=== PATIENT | male | born 1960 | race Two or more races ===

== ENCOUNTER 2021-10-17 13:31 | Emergency (ER) | payer MEDICAID, OTHER ==
[~2021-10-17] VITALS: Ht 177.8 cm; Wt 86.2 kg
[2021-10-17] MEDS ORDERED: CEPH-509 PO (15:31)
[2021-10-17] MEDS ORDERED: CLIN-203 PO (15:31)
[2021-10-17] MEDS ORDERED: CLINDAMYCIN 600 MG/4 ML VL IM ONE (15:45)
[2021-10-17] MEDS ORDERED: cefTRIAXone W LIDOCAINE 1 GM IM IM ONE (15:45)
[2021-10-17] MEDS ORDERED: SODIUM CHLORIDE 0.9% 1,000 ML IV ONE ×2 (17:15)
[2021-10-17 19:00] LABS: Basophils # (auto) 0.1 10 ^3/uL (0-0.2); Eosinophils # (auto) 0 10 ^3/uL (0-0.8); Eosinophils % (auto) 0.6 % (0.0-7.0); Hematocrit 41.2 % (41.0-53.0); Hemoglobin 13.9 g/dL (13.5-17.5); Lymphocytes # (auto) 2.1 10 ^3/uL (0.4-5.4); Lymphocytes % (auto) 27.5 % (10.0-50.0); Mean Corpuscular Hemoglobin 32.1 pg (28.0-32.0); Mean Corpuscular Hgb Conc. 33.7 g/dL (32.0-36.0); Mean Corpuscular Volume 95.2 fL (80.0-100.0); Monocytes # (auto) 0.7 10 ^3/uL (0-1.3); Monocytes % (auto) 8.9 % (0.0-12.0); Neutrophils # (auto) 4.8 10 ^3/uL (1.6-8.6); Nucleated Red Blood Cells % 0.1 %; Red Blood Cells 4.33 10^6/uL (4.5-5.90); Red Cell Distribution Width 14.6 % (11.8-14.3); White Blood Cell 7.7 10^3/uL (4.4-10.8)
[2021-10-17 19:04] LABS: INR 0.99 (0.9-1.15); Partial Thromboplastin Time 28.8 sec (23.6-33.0)
[2021-10-17 19:09] LABS: Calcium 8.9 mg/dL (8.5-10.1); Potassium 4.3 mmol/L (3.5-5.1)
[2021-10-17 19:17] LABS: Albumin 3.5 g/dL (3.4-5.0); BUN/Creatinine Ratio 23.8; Bilirubin, Total 0.6 mg/dL (0.2-1.0); Total Protein 7.8 g/dL (6.4-8.2)
[2021-10-17] MEDS ORDERED: cefTRIAXone 1GM/50ML D5W 50 ML IV ONE (23:45)
[2021-10-17] MEDS ORDERED: CLINDAMYCIN 300MG IV 50 ML IV ONE (23:45)
[2021-10-18] MEDS ORDERED: ONDANSETRON ODT 4 MG TAB PO ONE (09:45)
[2021-10-18] MEDS ORDERED: HYDROcodone-ACET 10/325MG TAB PO ONE (18:15)
[2021-10-19 03:22] VITALS: BP 153/72
== END 2021-10-19 03:54 | disposition short-term general hospital (02) ==
LOC: ER 13:31
DX: L03.116 Cellulitis of left lower limb (principal); M86.9 Osteomyelitis, unspecified; I10 Essential (primary) hypertension; Z79.2 Long term (current) use of antibiotics; Z79.899 Other long term (current) drug therapy; Z20.822 Contact with and (suspected) exposure to COVID-19
CPT/HCPCS: 36415; 73700; 80053; 83605; 84484; 85025; 85610; 85730; 87040; 87426; 93005; 93971; 96361; 96365; 96367; 99285; J0696; J3490

== ENCOUNTER → 2021-11-01 | Emergency (ER) | payer MEDICAID ==
[~2021-11-01] VITALS: Ht 177.8 cm; Wt 86.2 kg
[~2021-11-01] MED LIST: CEPH-509 PO; CLIN-203 PO
[2021-11-01 11:13] VITALS: BP 168/81
== END | disposition left against medical advice (07) ==
LOC: ER 11:08
DX: M79.672 Pain in left foot (principal); Z53.21 Procedure and treatment not carried out due to patient leaving prior to being seen by health care provider

== ENCOUNTER 2021-11-08 12:02 | Inpatient (IN) | payer MEDICAID ==
[~2021-11-08] VITALS: Ht 177.8 cm; Wt 190.0 kg
[2021-11-08 13:23] LABS: Basophils # (auto) 0.1 10 ^3/uL (0-0.2); Eosinophils # (auto) 0.1 10 ^3/uL (0-0.8); Eosinophils % (auto) 0.8 % (0.0-7.0); Hematocrit 37.7 % (41.0-53.0); Hemoglobin 12.2 g/dL (13.5-17.5); Lymphocytes # (auto) 2.2 10 ^3/uL (0.4-5.4); Lymphocytes % (auto) 30.9 % (10.0-50.0); Mean Corpuscular Hemoglobin 30.2 pg (28.0-32.0); Mean Corpuscular Hgb Conc. 32.5 g/dL (32.0-36.0); Mean Corpuscular Volume 93.1 fL (80.0-100.0); Monocytes # (auto) 0.7 10 ^3/uL (0-1.3); Monocytes % (auto) 10.3 % (0.0-12.0); Neutrophils # (auto) 4.1 10 ^3/uL (1.6-8.6); Nucleated Red Blood Cells % 0.2 %; Red Blood Cells 4.05 10^6/uL (4.5-5.90); Red Cell Distribution Width 14.3 % (11.8-14.3); White Blood Cell 7.1 10^3/uL (4.4-10.8)
[2021-11-08 13:26] LABS: Albumin 3.2 g/dL (3.4-5.0); Calcium 8.7 mg/dL (8.5-10.1); Potassium 3.9 mmol/L (3.5-5.1)
[2021-11-08 13:28] LABS: INR 1.06 (0.9-1.15); Partial Thromboplastin Time 29.9 sec (23.6-33.0)
[2021-11-08 13:44] LABS: BUN/Creatinine Ratio 24.7; Bilirubin, Total 0.4 mg/dL (0.2-1.0); Total Protein 7.8 g/dL (6.4-8.2)
[2021-11-08] MEDS ORDERED: CLINDAMYCIN 600MG IV 50 ML IV ONE (14:30)
[2021-11-08] MEDS ORDERED: MORPHINE SULFATE INJECTION 2 MG/ML SYRG IV PRN ×2 (15:15→19:00)
[2021-11-08] MEDS ORDERED: NITROGLYCERIN 0.4 MG SL TAB SL PRN (15:15)
[2021-11-08] MEDS ORDERED: FAMOTIDINE (10MG/ML) 2ML VL IV ONE (19:00)
[2021-11-08] MEDS ORDERED: VANCOMYCIN PER PHARMACY 0 MG IV SCH (19:00)
[2021-11-08] MEDS ORDERED: HYDROcodone-ACET 5/325MG TAB PO PRN ×2 (19:00)
[2021-11-08] MEDS ORDERED: LACTULOSE 20Gm/30ML SOLN PO PRN (19:00)
[2021-11-08] MEDS ORDERED: IPRATROPIUM BROM 0.5 MG/2.5ML INH SOL NEB ONE (19:00)
[2021-11-08] MEDS ORDERED: HYDROcodone-ACET 5/325MG TAB PO ONE (19:00)
[2021-11-08] MEDS ORDERED: DOCUSATE SOD 100 MG CAP PO PRN (19:00)
[2021-11-08] MEDS ORDERED: ONDANSETRON HCL 4 MG/2 ML VIAL IV PRN (19:00)
[2021-11-08] MEDS ORDERED: PIPERACILLIN-TAZOB 3.375GM 100 ML IV ONE (19:00)
[2021-11-08] MEDS ORDERED: hydrALAZINE HCL 20 MG/ML VL IV PRN (19:00)
[2021-11-08] MEDS ORDERED: VANCOMYCIN 1GM/250ML 250 ML IV ONE (20:00)
[2021-11-08 20:58] LABS: INR 1.06 (0.9-1.15); Partial Thromboplastin Time 30.1 sec (23.6-33.0)
[2021-11-08 21:02] LABS: Magnesium 2.3 mg/dL (1.6-2.6); Phosphorus 3.1 mg/dL (2.5-4.90)
[2021-11-08] MEDS ORDERED: diphenhdrAMINE HCL 50 MG/1 ML VL ONE (21:34)
[2021-11-08] MEDS: PIPERACILLIN-TAZOB 3.375GM 100 ML IV SCH (21:51)
[2021-11-08] MEDS ORDERED: ATORVASTATIN 20 MG TAB PO SCH (22:00)
[2021-11-08] MEDS ORDERED: IPRATROPIUM BROM 0.5 MG/2.5ML INH SOL NEB SCH (22:00)
[2021-11-09] MEDS ORDERED: METOPROLOL SUCCINATE XL 50 MG TAB PO ONE
[2021-11-09] MEDS: PIPERACILLIN-TAZOB 3.375GM 100 ML IV SCH ×2 (03:31→10:24)
[2021-11-09] MEDS: VANCOMYCIN 1GM/250ML 250 ML IV SCH ×2 (04:00→06:54)
[2021-11-09 05:00] VITALS: BP 111/66
[2021-11-09 06:22] LABS: INR 1.1 (0.9-1.15); Partial Thromboplastin Time 30.7 sec (23.6-33.0)
[2021-11-09 07:00] LABS: CRP High Sensitivity 3.69 mg/dL (< 0.3); Phosphorus 3.7 mg/dL (2.5-4.90); Uric Acid 5.7 mg/dL (3.5-7.2)
[2021-11-09 08:31] VITALS: BP 115/64
[2021-11-09] MEDS ORDERED: ENOXAPARIN SOD 40 MG/0.4 ML SYRINGE SC SCH (10:00)
[2021-11-09] MEDS ORDERED: BENAZEPRIL HCL 10 MG TAB PO SCH (10:00)
[2021-11-09] MEDS ORDERED: FAMOTIDINE (10MG/ML) 2ML VL IV SCH (10:00)
[2021-11-09] MEDS ORDERED: ASPirin 81 mg TAB PO SCH (10:00)
[2021-11-09] MEDS ORDERED: METOPROLOL SUCCINATE XL 50 MG TAB PO SCH (10:00)
[2021-11-09] MEDS ORDERED: CEPH-509 PO (11:30)
[2021-11-09] MEDS ORDERED: CLIN-203 PO (11:30)
[2021-11-09 12:41] VITALS: BP 116/62
[2021-11-09 12:50] VITALS: BP 116/62
== END 2021-11-09 15:30 | disposition home or self-care (01) | DRG 344 ==
LOC: ER 12:02 → OVERFLOW 15:11 → WEST WING 22:50
PROVIDERS: ADMIT Hospitalist; ATTEND Internal Medicine Nephrology
DX: M86.172 Other acute osteomyelitis, left ankle and foot (principal); I96 Gangrene, not elsewhere classified; L03.116 Cellulitis of left lower limb; Z68.44 Body mass index [BMI] 60.0-69.9, adult; L97.529 Non-pressure chronic ulcer of other part of left foot with unspecified severity; I10 Essential (primary) hypertension; E66.01 Morbid (severe) obesity due to excess calories; Z20.822 Contact with and (suspected) exposure to COVID-19; D64.9 Anemia, unspecified; E78.5 Hyperlipidemia, unspecified; Z82.49 Family history of ischemic heart disease and other diseases of the circulatory system; Z83.3 Family history of diabetes mellitus; Z89.422 Acquired absence of other left toe(s)
CPT/HCPCS: 36415; 73700; 80053; 80061; 82550; 82728; 83036; 83615; 83690; 83735; 83880; 84100; 84443; 84484; 84550; 85025; 85379; 85610; 85652; 85730; 86141; 87040; 87081; 87086; 87426; 93005; 93925; 93970; 96365; 96367; G0378; J2543; J3490